=== PATIENT | male | born 1970 | race African-American/Black ===

== ENCOUNTER 2020-01-07 09:55 | Emergency (ER) | payer MEDICAID ==
[~2020-01-07] VITALS: Ht 167.6 cm; Wt 66.0 kg
[2020-01-07 13:23] VITALS: BP 130/80
== END 2020-01-07 13:28 | disposition home or self-care (01) ==
LOC: ER 09:55
DX: J06.9 Acute upper respiratory infection, unspecified (principal); G89.29 Other chronic pain; M54.5 Low back pain
CPT/HCPCS: 99283

== ENCOUNTER 2020-02-10 06:29 | Emergency (ER) | payer MEDICAID ==
[~2020-02-10] VITALS: Ht 172.7 cm; Wt 68.0 kg
[2020-02-10] MEDS ORDERED: SODIUM CHLORIDE 0.9% 1000ML BAG (SEPSIS BOLUS) IV ONE (07:15)
[2020-02-10] MEDS ORDERED: MORPHINE SULFATE 4 MG/ML CPJ (NOT FOR IM USE) IV STA (07:15)
[2020-02-10] MEDS ORDERED: ONDANSETRON HCL 4MG/2ML INJ IV STA (07:15)
[2020-02-10 08:47] LABS: BASOPHILS % 0.5 % (0.0-2.0); EOSINOPHILS % 1.8 % (0.0-5.0); HEMATOCRIT. 42.4 % (42.0-52.0); HEMOGLOBIN. 13.9 g/dL (14.0-18.0); MEAN CORPUSCULAR HEMOGLOBIN 28.6 pg (28.0-32.0); MEAN PLATELET VOLUME 7.1 fl (7.4-10.4); NEUTROPHILS % 47.7 % (40.0-76.0); PLATELET 545 x1000/uL (130-400); RED BLOOD CELL COUNT 4.87 mill/uL (4.7-6.1); RED CELL DISTRIBUTION WIDTH 12.5 % (11.6-14.6)
[2020-02-10 08:49] LABS: INR 0.9; PARTIAL THROMBOPLASTIN TIME 21.7 sec (23.4-31.0); PROTHROMBIN TIME 10.1 sec (9.6-11.0)
[2020-02-10 09:05] LABS: BG BASE EXCESS -2.9 mmol/L (-2.0-2.0); BG CARBOXYHEMOGLOBIN 0.3 % (0.5-1.5); BG DEOXYHEMOGLOBIN 2.5 % (0.0-5.0); BG FRACTION INSPIRED OXYGEN 21; BG HCO3 ACT 23.1 mmol/L (22.0-26.0); BG OXYGEN SATURATION 97.5 % (92.0-98.5); BG OXYHEMOGLOBIN 97.2 % (94.0-97.0); BG PCO2 44.6 mmHg (35.0-45.0); BG PH 7.332 (7.350-7.450); BG PO2 102.8 mmHg (75.0-100.0); BG SAMPLE SITE LEFT RADIAL; BG TOTAL HEMOGLOBIN 13.8 g/dL (12.0-18.0); BG VENT MODE ROOM AIR
[2020-02-10] MEDS ORDERED: MORPHINE SULFATE 4 MG/ML CPJ (NOT FOR IM USE) IV ONE ×3 (09:30→19:30)
[2020-02-10 09:58] LABS: CHLORIDE 107 mEq/L (98-107)
[2020-02-10 10:01] LABS: CLARITY URINE CLEAR (CLEAR); COLOR URINE YELLOW (YELLOW); KETONES URINE TRACE (NEGATIVE); LEUKOCYTE ESTERASE URINE NEGATIVE (NEGATIVE); NITRITE URINE NEGATIVE (NEGATIVE); OCCULT BLOOD URINE NEGATIVE (NEGATIVE); PH URINE 5.5 (4.5-8.0); PROTEIN URINE NEGATIVE (NEGATIVE); SPECIFIC GRAVITY URINE 1.024 (1.005-1.030); UROBILINOGEN URINE 0.2 E.U./dL (0.2-1.0)
[2020-02-10 10:01] LABS: ETHANOL BLOOD < 10 mg/dL
[2020-02-10] MEDS ORDERED: TETANUS, DIPHTHERIA, PERTUSSIS VAC/PF 0.5ML (>7YR OLD) IM ONE (14:30)
[2020-02-10 19:30] VITALS: BP 173/87
== END 2020-02-10 19:43 | disposition short-term general hospital (02) ==
LOC: ER 06:29 → CANBEDREQ 17:19 → ER 19:43
DX: T23.002A Burn of unspecified degree of left hand, unspecified site, initial encounter (principal); T23.001A Burn of unspecified degree of right hand, unspecified site, initial encounter; T31.0 Burns involving less than 10% of body surface; X08.8XXA Exposure to other specified smoke, fire and flames, initial encounter; Y93.89 Activity, other specified; Y92.89 Other specified places as the place of occurrence of the external cause; Y99.8 Other external cause status; F17.290 Nicotine dependence, other tobacco product, uncomplicated
CPT/HCPCS: 36415; 36600; 71045; 80053; 80320; 81003; 82375; 82805; 83605; 83690; 84484; 85025; 85610; 85730; 86850; 86900; 86901; 90471; 90715; 93005; 96374; 96375; 96376; 99291; 99406; J2270; J2405; J7030; 99285; G0480

== ENCOUNTER 2021-12-28 11:30 | Inpatient (IN) | payer MEDICAID ==
[~2021-12-28] VITALS: Ht 167.6 cm; Wt 62.1 kg
[2021-12-28] MEDS ORDERED: KETOROLAC 30MG/ML VIAL IV STA (12:01)
[2021-12-28] MEDS ORDERED: PROPOFOL 10MG/ML 100ML 100 ML IV ONE (12:15)
[2021-12-28] MEDS ORDERED: SUCCINYLCHOLINE CHLORIDE 200MG/10ML IV ONE (12:15)
[2021-12-28] MEDS ORDERED: ETOMIDATE 2MG/ML 10ML VIAL IV ONE (12:15)
[2021-12-28] MEDS ORDERED: SODIUM CHLORIDE 0.9% 1,000 ML IV ONE (12:15)
[2021-12-28] MEDS ORDERED: DEXAMETHASONE 10 MG/ML VIAL IV ONE (12:15)
[2021-12-28] MEDS: AMPICILLIN SOD/SULBACTAM NA 3 G in SODIUM CHLORIDE 0.9% 100 ML IV SCH ×2 (12:30→21:28)
[2021-12-28] MEDS ORDERED: SODIUM CHLORIDE 0.9% 2,000 ML IV ONE (12:30)
[2021-12-28 13:08] LABS: CHLORIDE 101 mEq/L (98-107)
[2021-12-28 13:14] LABS: BASOPHILS % 0.2 % (0.0-2.0); EOSINOPHILS % 0.3 % (0.0-5.0); HEMATOCRIT. 41.5 % (42.0-52.0); HEMOGLOBIN. 13.5 g/dL (14.0-18.0); MEAN CORPUSCULAR HEMOGLOBIN 27.5 pg (28.0-32.0); MEAN CORPUSCULAR VOLUME 84.5 fL (80.0-94.0); MEAN PLATELET VOLUME 6.3 fl (7.4-10.4); MONOCYTES % 8.4 % (2.0-8.0); NEUTROPHILS % 81.1 % (40.0-76.0); PLATELET 634 x1000/uL (130-400); RED BLOOD CELL COUNT 4.91 mill/uL (4.7-6.1); RED CELL DISTRIBUTION WIDTH 13.2 % (11.6-14.6)
[2021-12-28] MEDS ORDERED: MIDAZOLAM HCL 2 MG/2 ML VIAL IV ONE (13:15)
[2021-12-28 13:16] LABS: ETHANOL BLOOD < 10 mg/dL
[2021-12-28] MEDS ORDERED: MIDAZOLAM HCL 100 MG in SODIUM CHLORIDE 0.9% 100 ML IV PRN (14:30)
[2021-12-28] MEDS ORDERED: MIDAZOLAM HCL 100 MG in DEXT 5% WATER 80 ML IV ONE (14:30)
[2021-12-28] MEDS ORDERED: FENTANYL CITRATE/PF 50MCG/ML 2ML VIAL IV ONE (14:30)
[2021-12-28] MEDS ORDERED: PROPOFOL 10MG/ML 100ML 100 ML IV PRN (15:45)
[2021-12-28 15:50] LABS: CLARITY URINE CLEAR (CLEAR); COLOR URINE YELLOW (YELLOW); KETONES URINE NEGATIVE (NEGATIVE); LEUKOCYTE ESTERASE URINE NEGATIVE (NEGATIVE); NITRITE URINE NEGATIVE (NEGATIVE); OCCULT BLOOD URINE NEGATIVE (NEGATIVE); PH URINE 6.5 (4.5-8.0); PROTEIN URINE 1+ (NEGATIVE); SPECIFIC GRAVITY URINE 1.013 (1.005-1.030); UROBILINOGEN URINE 0.2 E.U./dL (0.2-1.0)
[2021-12-28 16:11] LABS: *AMPHETAMINES SCREEN URINE PRESUMTIVE POSITIVE (NEGATIVE)
[2021-12-28 16:12] LABS: *BENZODIAZEPINES SCREEN URINE PRESUMTIVE POSITIVE (NEGATIVE); *COCAINE SCREEN URINE NEGATIVE (NEGATIVE); METHADONE URINE SCREEN NEGATIVE (NEGATIVE); OPIATES URINE SCREEN NEGATIVE (NEGATIVE)
[2021-12-28 16:13] LABS: *BARBITURATES SCREEN URINE NEGATIVE (NEGATIVE); CANNABINOID URINE SCREEN PRESUMTIVE POSITIVE (NEGATIVE); PHENCYCLIDINE URINE SCREEN PRESUMTIVE POSITIVE (NEGATIVE)
[2021-12-28] MEDS ORDERED: PIPERACILLIN/TAZOBACTAM 3.375GM/50ML PREMIX IV SCH (21:15)
[2021-12-28] MEDS ORDERED: VANCOMYCIN 1G PREMIX 200 ML IV SCH (21:15)
[2021-12-28 21:39] LABS: BG BASE EXCESS 0.3 mmol/L (-2.0-2.0); BG CARBOXYHEMOGLOBIN 0.6 % (0.5-1.5); BG DEOXYHEMOGLOBIN 0.4 % (0.0-5.0); BG FRACTION INSPIRED OXYGEN 50; BG HCO3 ACT 23.8 mmol/L (22.0-26.0); BG METHEMOGLOBIN 0.4 % (0.0-1.5); BG OXYGEN SATURATION 99.6 % (92.0-98.5); BG OXYHEMOGLOBIN 98.6 % (94.0-97.0); BG PCO2 35.1 mmHg (35.0-45.0); BG PH 7.449 (7.350-7.450); BG PO2 220.8 mmHg (75.0-100.0); BG TOTAL HEMOGLOBIN 14.9 g/dL (12.0-18.0); BG TOTAL RESPIRATORY RATE 16 b/min; BG VENT MODE VENT - AC
[2021-12-28] MEDS: PIPERACILLIN/TAZ 3.375G PREMIX 50 ML IV SCH (22:08)
[2021-12-28] MEDS: HYDRALAZINE 20MG/ML VIAL IV PRN (22:08)
[2021-12-28] MEDS ORDERED: IOHEXOL-300 100 ML BOTTLE ONE (22:37)
[2021-12-29] VITALS (56 sets, daily range): BP systolic 112–157; BP diastolic 66–91
[2021-12-29] MEDS: PIPERACILLIN/TAZ 3.375G PREMIX 50 ML IV SCH (06:00)
[2021-12-29] MEDS: PROPOFOL 10MG/ML 100ML 100 ML IV PRN ×2 (08:28→12:48)
[2021-12-29] MEDS ORDERED: ONDANSETRON HCL 4MG/2ML INJ IV PRN (09:00)
[2021-12-29 10:41] LABS: HEMATOCRIT. 41.1 % (42.0-52.0); HEMOGLOBIN. 13.3 g/dL (14.0-18.0); MEAN CORPUSCULAR HEMOGLOBIN 27.2 pg (28.0-32.0); MEAN CORPUSCULAR VOLUME 84.2 fL (80.0-94.0); MEAN PLATELET VOLUME 6.3 fl (7.4-10.4); PLATELET 608 x1000/uL (130-400); RED BLOOD CELL COUNT 4.88 mill/uL (4.7-6.1); RED CELL DISTRIBUTION WIDTH 12.9 % (11.6-14.6)
[2021-12-29 10:47] LABS: CHLORIDE 106 mEq/L (98-107)
[2021-12-29 11:22] LABS: PLATELET ESTIMATE INCREASED
[2021-12-29 11:55] LABS: BG BASE EXCESS 1.2 mmol/L (-2.0-2.0); BG CARBOXYHEMOGLOBIN 0.3 % (0.5-1.5); BG DEOXYHEMOGLOBIN 1.4 % (0.0-5.0); BG FRACTION INSPIRED OXYGEN 40; BG HCO3 ACT 25.4 mmol/L (22.0-26.0); BG METHEMOGLOBIN 0.2 % (0.0-1.5); BG OXYGEN SATURATION 98.6 % (92.0-98.5); BG OXYHEMOGLOBIN 98.1 % (94.0-97.0); BG PCO2 38.8 mmHg (35.0-45.0); BG PEEP (cmH2O) 0 cmH2O; BG PH 7.434 (7.350-7.450); BG SAMPLE SITE RIGHT RADIAL; BG VENT MODE VENT - AC/VCV
[2021-12-29] MEDS: FAMOTIDINE 20MG/2ML VIAL IV SCH ×2 (12:50→20:10)
[2021-12-29] MEDS: DEXAMETHASONE 4MG/ML 1ML VIAL IV SCH ×2 (12:50→17:44)
[2021-12-29] MEDS: FENTANYL CITRATE/PF 2,500 MCG in SODIUM CHLORIDE 0.9% 200 ML IV PRN (14:03)
[2021-12-29] MEDS: ENOXAPARIN 40MG/0.4ML SYR SUBCUT SCH (16:00)
[2021-12-29] MEDS: AMPICILLIN SOD/SULBACTAM NA 3 G in SODIUM CHLORIDE 0.9% 100 ML IV SCH (17:41)
[2021-12-29] MEDS: PROPOFOL 10MG/ML 100ML 100 ML IV SCH ×2 (19:04→23:45)
[2021-12-30] VITALS (86 sets, daily range): BP systolic 98–158; BP diastolic 60–93
[2021-12-30] MEDS: DEXAMETHASONE 4MG/ML 1ML VIAL IV SCH ×5 (00:29→23:33)
[2021-12-30] MEDS: AMPICILLIN SOD/SULBACTAM NA 3 G in SODIUM CHLORIDE 0.9% 100 ML IV SCH ×5 (00:29→23:33)
[2021-12-30] MEDS: PROPOFOL 10MG/ML 100ML 100 ML IV SCH ×4 (04:37→18:16)
[2021-12-30 07:39] LABS: HEMATOCRIT. 36.7 % (42.0-52.0); HEMOGLOBIN. 11.9 g/dL (14.0-18.0); MEAN CORPUSCULAR HEMOGLOBIN 27.2 pg (28.0-32.0); MEAN CORPUSCULAR VOLUME 83.8 fL (80.0-94.0); MEAN PLATELET VOLUME 6.6 fl (7.4-10.4); PLATELET 583 x1000/uL (130-400); RED BLOOD CELL COUNT 4.38 mill/uL (4.7-6.1)
[2021-12-30 07:40] LABS: CHLORIDE 104 mEq/L (98-107)
[2021-12-30 08:28] LABS: BG BASE EXCESS 1.8 mmol/L (-2.0-2.0); BG CARBOXYHEMOGLOBIN 0.5 % (0.5-1.5); BG DEOXYHEMOGLOBIN 5.5 % (0.0-5.0); BG FRACTION INSPIRED OXYGEN 100; BG HCO3 ACT 27.7 mmol/L (22.0-26.0); BG METHEMOGLOBIN 0.3 % (0.0-1.5); BG OXYGEN SATURATION 94.5 % (92.0-98.5); BG OXYHEMOGLOBIN 93.7 % (94.0-97.0); BG PCO2 48.5 mmHg (35.0-45.0); BG PH 7.374 (7.350-7.450); BG PO2 71.6 mmHg (75.0-100.0); BG SAMPLE SITE RIGHT RADIAL; BG VENT MODE VENT - AC/VC
[2021-12-30 08:36] LABS: PLATELET ESTIMATE INCREASED
[2021-12-30] MEDS: FAMOTIDINE 20MG/2ML VIAL IV SCH ×2 (09:19→20:08)
[2021-12-30] MEDS: ENOXAPARIN 40MG/0.4ML SYR SUBCUT SCH (16:20)
[2021-12-30] MEDS: FENTANYL CITRATE/PF 2,500 MCG in SODIUM CHLORIDE 0.9% 200 ML IV PRN (21:12)
[2021-12-30] MEDS: PROPOFOL 10MG/ML 100ML 100 ML IV PRN (23:46)
[2021-12-31] VITALS (92 sets, daily range): BP systolic 64–154; BP diastolic 36–106
[2021-12-31 04:07] LABS: HIV SCREEN 4G Non Reactive (Non Reactive)
[2021-12-31] MEDS: PROPOFOL 10MG/ML 100ML 100 ML IV PRN ×4 (04:59→23:25)
[2021-12-31] MEDS: AMPICILLIN SOD/SULBACTAM NA 3 G in SODIUM CHLORIDE 0.9% 100 ML IV SCH ×4 (05:29→23:23)
[2021-12-31] MEDS: DEXAMETHASONE 4MG/ML 1ML VIAL IV SCH ×4 (05:29→23:23)
[2021-12-31 06:13] LABS: HEMATOCRIT. 34.4 % (42.0-52.0); MEAN CORPUSCULAR HEMOGLOBIN 26.8 pg (28.0-32.0); MEAN CORPUSCULAR VOLUME 83.9 fL (80.0-94.0); MEAN PLATELET VOLUME 6.6 fl (7.4-10.4); PLATELET 548 x1000/uL (130-400)
[2021-12-31 06:18] LABS: CHLORIDE 107 mEq/L (98-107)
[2021-12-31 08:43] LABS: BG BASE EXCESS 2.4 mmol/L (-2.0-2.0); BG CARBOXYHEMOGLOBIN 0.3 % (0.5-1.5); BG DEOXYHEMOGLOBIN 0.8 % (0.0-5.0); BG FRACTION INSPIRED OXYGEN 40; BG HCO3 ACT 26.6 mmol/L (22.0-26.0); BG METHEMOGLOBIN 0.3 % (0.0-1.5); BG OXYGEN SATURATION 99.2 % (92.0-98.5); BG OXYHEMOGLOBIN 98.6 % (94.0-97.0); BG PCO2 39.6 mmHg (35.0-45.0); BG PH 7.445 (7.350-7.450); BG PO2 162.5 mmHg (75.0-100.0); BG SAMPLE SITE RIGHT RADIAL; BG TOTAL HEMOGLOBIN 12.2 g/dL (12.0-18.0); BG TOTAL RESPIRATORY RATE 14 b/min; BG VENT MODE VENT - AC
[2021-12-31] MEDS: FAMOTIDINE 20MG/2ML VIAL IV SCH ×2 (09:00→20:45)
[2021-12-31 09:06] LABS: PLATELET ESTIMATE INCREASED
[2021-12-31] MEDS: ENOXAPARIN 40MG/0.4ML SYR SUBCUT SCH (15:11)
[2021-12-31] MEDS ORDERED: GUAIFENESIN-DM 200MG-20MG/10ML UDC PO PRN (20:00)
[2021-12-31] MEDS: FENTANYL CITRATE/PF 2,500 MCG in SODIUM CHLORIDE 0.9% 200 ML IV PRN (23:25)
[2022-01-01] VITALS (85 sets, daily range): BP systolic 111–165; BP diastolic 57–93
[2022-01-01] MEDS: AMPICILLIN SOD/SULBACTAM NA 3 G in SODIUM CHLORIDE 0.9% 100 ML IV SCH ×3 (05:07→17:32)
[2022-01-01] MEDS: DEXAMETHASONE 4MG/ML 1ML VIAL IV SCH ×3 (05:07→17:32)
[2022-01-01] MEDS: PROPOFOL 10MG/ML 100ML 100 ML IV PRN ×5 (05:10→23:14)
[2022-01-01 07:00] LABS: CHLORIDE 105 mEq/L (98-107)
[2022-01-01 07:03] LABS: BASOPHILS % 0.1 % (0.0-2.0); HEMATOCRIT. 34.3 % (42.0-52.0); HEMOGLOBIN. 11.2 g/dL (14.0-18.0); LYMPHOCYTES % 8.8 % (20.0-50.0); MEAN CORPUSCULAR HEMOGLOBIN 27.7 pg (28.0-32.0); MEAN CORPUSCULAR VOLUME 84.6 fL (80.0-94.0); MEAN PLATELET VOLUME 6.8 fl (7.4-10.4); MONOCYTES % 6.4 % (2.0-8.0); NEUTROPHILS % 84.7 % (40.0-76.0); PLATELET 551 x1000/uL (130-400); RED BLOOD CELL COUNT 4.06 mill/uL (4.7-6.1); RED CELL DISTRIBUTION WIDTH 12.9 % (11.6-14.6)
[2022-01-01] MEDS ORDERED: IPRATROPIUM/ALBUTEROL 0.5-3(2.5)MG/3ML NEB HHN PRN (08:45)
[2022-01-01 09:09] LABS: BG BASE EXCESS 1.9 mmol/L (-2.0-2.0); BG CARBOXYHEMOGLOBIN 0.8 % (0.5-1.5); BG DEOXYHEMOGLOBIN 0.7 % (0.0-5.0); BG FRACTION INSPIRED OXYGEN 40; BG METHEMOGLOBIN 0.3 % (0.0-1.5); BG OXYGEN SATURATION 99.3 % (92.0-98.5); BG OXYHEMOGLOBIN 98.2 % (94.0-97.0); BG PCO2 43.7 mmHg (35.0-45.0); BG PH 7.408 (7.350-7.450); BG PO2 169.4 mmHg (75.0-100.0); BG SAMPLE SITE RIGHT RADIAL; BG TOTAL HEMOGLOBIN 12.5 g/dL (12.0-18.0); BG TOTAL RESPIRATORY RATE 14 b/min; BG VENT MODE VENT - AC
[2022-01-01] MEDS: FAMOTIDINE 20MG/2ML VIAL IV SCH ×2 (09:32→21:59)
[2022-01-01] MEDS ORDERED: LIDOCAINE HCL 1% 20ML VIAL (Pyxis) INJ ONE (10:45)
[2022-01-01] MEDS: IPRATROPIUM/ALBUTEROL 0.5-3(2.5)MG/3ML NEB HHN SCH ×3 (12:34→21:29)
[2022-01-01] MEDS: ENOXAPARIN 40MG/0.4ML SYR SUBCUT SCH (16:05)
[2022-01-02] VITALS (81 sets, daily range): BP systolic 106–174; BP diastolic 56–116
[2022-01-02] MEDS: AMPICILLIN SOD/SULBACTAM NA 3 G in SODIUM CHLORIDE 0.9% 100 ML IV SCH ×4 (00:01→17:09)
[2022-01-02] MEDS: DEXAMETHASONE 4MG/ML 1ML VIAL IV SCH ×4 (00:01→17:09)
[2022-01-02] MEDS: IPRATROPIUM/ALBUTEROL 0.5-3(2.5)MG/3ML NEB HHN SCH ×5 (01:56→15:34)
[2022-01-02] MEDS: FENTANYL CITRATE/PF 2,500 MCG in SODIUM CHLORIDE 0.9% 200 ML IV PRN (02:02)
[2022-01-02] MEDS: PROPOFOL 10MG/ML 100ML 100 ML IV PRN ×5 (03:26→23:08)
[2022-01-02 06:11] LABS: HEMATOCRIT. 33.1 % (42.0-52.0); HEMOGLOBIN. 10.7 g/dL (14.0-18.0); MEAN CORPUSCULAR HEMOGLOBIN 27.3 pg (28.0-32.0); MEAN CORPUSCULAR VOLUME 84.7 fL (80.0-94.0); MEAN PLATELET VOLUME 6.7 fl (7.4-10.4); PLATELET 557 x1000/uL (130-400); RED BLOOD CELL COUNT 3.91 mill/uL (4.7-6.1); RED CELL DISTRIBUTION WIDTH 13.1 % (11.6-14.6)
[2022-01-02 06:24] LABS: CHLORIDE 109 mEq/L (98-107)
[2022-01-02] MEDS: FAMOTIDINE 20MG/2ML VIAL IV SCH ×2 (08:01→22:18)
[2022-01-02 09:29] LABS: BG BASE EXCESS 0.1 mmol/L (-2.0-2.0); BG CARBOXYHEMOGLOBIN 0.4 % (0.5-1.5); BG DEOXYHEMOGLOBIN 0.9 % (0.0-5.0); BG FRACTION INSPIRED OXYGEN 40; BG HCO3 ACT 25.8 mmol/L (22.0-26.0); BG METHEMOGLOBIN 0.3 % (0.0-1.5); BG OXYGEN SATURATION 99.1 % (92.0-98.5); BG OXYHEMOGLOBIN 98.4 % (94.0-97.0); BG PCO2 46.8 mmHg (35.0-45.0); BG PO2 151.4 mmHg (75.0-100.0); BG SAMPLE SITE RIGHT RADIAL; BG TOTAL HEMOGLOBIN 11.8 g/dL (12.0-18.0); BG VENT MODE VENT - AC
[2022-01-02 11:56] LABS: PLATELET ESTIMATE NORMAL
[2022-01-02] MEDS: ENOXAPARIN 40MG/0.4ML SYR SUBCUT SCH (17:10)
[2022-01-02] MEDS ORDERED: IOHEXOL-300 100 ML BOTTLE ONE (17:43)
[2022-01-03] VITALS (63 sets, daily range): BP systolic 103–168; BP diastolic 55–94
[2022-01-03] MEDS: AMPICILLIN SOD/SULBACTAM NA 3 G in SODIUM CHLORIDE 0.9% 100 ML IV SCH ×4 (01:06→21:39)
[2022-01-03] MEDS: DEXAMETHASONE 4MG/ML 1ML VIAL IV SCH ×4 (01:07→17:42)
[2022-01-03] MEDS: FENTANYL CITRATE/PF 2,500 MCG in SODIUM CHLORIDE 0.9% 200 ML IV PRN ×2 (02:19→20:31)
[2022-01-03] MEDS: PROPOFOL 10MG/ML 100ML 100 ML IV PRN ×5 (02:29→21:30)
[2022-01-03 05:59] LABS: CHLORIDE 109 mEq/L (98-107)
[2022-01-03 06:07] LABS: HEMATOCRIT. 31.5 % (42.0-52.0); HEMOGLOBIN. 10.6 g/dL (14.0-18.0); MEAN CORPUSCULAR HEMOGLOBIN 28.2 pg (28.0-32.0); MEAN CORPUSCULAR VOLUME 84.2 fL (80.0-94.0); MEAN PLATELET VOLUME 6.7 fl (7.4-10.4); PLATELET 554 x1000/uL (130-400); RED BLOOD CELL COUNT 3.74 mill/uL (4.7-6.1)
[2022-01-03] MEDS: IPRATROPIUM/ALBUTEROL 0.5-3(2.5)MG/3ML NEB HHN SCH ×4 (08:28→20:58)
[2022-01-03] MEDS: FAMOTIDINE 20MG/2ML VIAL IV SCH ×2 (09:14→21:00)
[2022-01-03 09:44] LABS: BG BASE EXCESS 1.9 mmol/L (-2.0-2.0); BG CARBOXYHEMOGLOBIN 0.3 % (0.5-1.5); BG DEOXYHEMOGLOBIN 1.1 % (0.0-5.0); BG FRACTION INSPIRED OXYGEN 30; BG HCO3 ACT 25.8 mmol/L (22.0-26.0); BG METHEMOGLOBIN 0.2 % (0.0-1.5); BG OXYGEN SATURATION 98.9 % (92.0-98.5); BG OXYHEMOGLOBIN 98.4 % (94.0-97.0); BG PCO2 37.9 mmHg (35.0-45.0); BG PH 7.451 (7.350-7.450); BG PO2 140.5 mmHg (75.0-100.0); BG SAMPLE SITE RIGHT RADIAL; BG TOTAL HEMOGLOBIN 11.6 g/dL (12.0-18.0); BG VENT MODE VENT - AC
[2022-01-03 10:22] LABS: PLATELET ESTIMATE INCREASED
[2022-01-03] MEDS ORDERED: PROPOFOL 10MG/ML 100ML 100 ML IV PRN (16:30)
[2022-01-03] MEDS: ENOXAPARIN 40MG/0.4ML SYR SUBCUT SCH (17:42)
[2022-01-03] MEDS ORDERED: AMPICILLIN SOD/SULBACTAM NA 3 G in SODIUM CHLORIDE 0.9% 100 ML IV SCH (23:00)
[2022-01-04] VITALS (69 sets, daily range): BP systolic 106–196; BP diastolic 63–153
[2022-01-04] MEDS: PROPOFOL 10MG/ML 100ML 100 ML IV PRN ×2 (03:00→07:25)
[2022-01-04] MEDS: IPRATROPIUM/ALBUTEROL 0.5-3(2.5)MG/3ML NEB HHN SCH ×5 (04:23→20:32)
[2022-01-04] MEDS: DEXAMETHASONE 4MG/ML 1ML VIAL IV SCH ×5 (05:43→23:38)
[2022-01-04] MEDS: AMPICILLIN SOD/SULBACTAM NA 3 G in SODIUM CHLORIDE 0.9% 100 ML IV SCH ×4 (05:43→23:38)
[2022-01-04 06:33] LABS: HEMATOCRIT. 35.4 % (42.0-52.0); HEMOGLOBIN. 11.2 g/dL (14.0-18.0); MEAN PLATELET VOLUME 6.9 fl (7.4-10.4); PLATELET 542 x1000/uL (130-400); RED BLOOD CELL COUNT 4.16 mill/uL (4.7-6.1); RED CELL DISTRIBUTION WIDTH 13.1 % (11.6-14.6)
[2022-01-04 06:47] LABS: CHLORIDE 107 mEq/L (98-107)
[2022-01-04] MEDS: FAMOTIDINE 20MG/2ML VIAL IV SCH ×2 (08:38→21:35)
[2022-01-04 09:20] LABS: BG BASE EXCESS -0.5 mmol/L (-2.0-2.0); BG CARBOXYHEMOGLOBIN 0.7 % (0.5-1.5); BG DEOXYHEMOGLOBIN 1.2 % (0.0-5.0); BG FRACTION INSPIRED OXYGEN 30; BG HCO3 ACT 23.6 mmol/L (22.0-26.0); BG METHEMOGLOBIN 0.2 % (0.0-1.5); BG OXYGEN SATURATION 98.8 % (92.0-98.5); BG OXYHEMOGLOBIN 97.9 % (94.0-97.0); BG PH 7.423 (7.350-7.450); BG PO2 131.4 mmHg (75.0-100.0); BG SAMPLE SITE LEFT RADIAL; BG TOTAL HEMOGLOBIN 12.2 g/dL (12.0-18.0); BG VENT MODE VENT - AC
[2022-01-04 13:33] LABS: BG BASE EXCESS -2.1 mmol/L (-2.0-2.0); BG CARBOXYHEMOGLOBIN 0.5 % (0.5-1.5); BG DEOXYHEMOGLOBIN 1.9 % (0.0-5.0); BG FRACTION INSPIRED OXYGEN 30; BG HCO3 ACT 22.8 mmol/L (22.0-26.0); BG METHEMOGLOBIN 0.4 % (0.0-1.5); BG OXYGEN SATURATION 98.1 % (92.0-98.5); BG OXYHEMOGLOBIN 97.2 % (94.0-97.0); BG PCO2 39.7 mmHg (35.0-45.0); BG PH 7.377 (7.350-7.450); BG PO2 109.7 mmHg (75.0-100.0); BG SAMPLE SITE RIGHT RADIAL; BG TOTAL HEMOGLOBIN 13.7 g/dL (12.0-18.0); BG VENT MODE VENT - CPAP
[2022-01-04] MEDS ORDERED: RACEPINEPHRINE 2.25% 0.5ML NEB VIAL HHN PRN (14:15)
[2022-01-04 14:24] LABS: PLATELET ESTIMATE INCREASED
[2022-01-04] MEDS: ENOXAPARIN 40MG/0.4ML SYR SUBCUT SCH (15:50)
[2022-01-04] MEDS: HYDRALAZINE 20MG/ML VIAL IV PRN (17:17)
[2022-01-05] VITALS (50 sets, daily range): BP systolic 90–169; BP diastolic 43–111
[2022-01-05] MEDS: IPRATROPIUM/ALBUTEROL 0.5-3(2.5)MG/3ML NEB HHN SCH ×7 (00:09→20:35)
[2022-01-05] MEDS: DEXAMETHASONE 4MG/ML 1ML VIAL IV SCH ×2 (06:00→17:59)
[2022-01-05] MEDS: AMPICILLIN SOD/SULBACTAM NA 3 G in SODIUM CHLORIDE 0.9% 100 ML IV SCH ×4 (06:00→23:43)
[2022-01-05 06:07] LABS: BASOPHILS % 0.4 % (0.0-2.0); HEMATOCRIT. 37.7 % (42.0-52.0); HEMOGLOBIN. 12.1 g/dL (14.0-18.0); MEAN CORPUSCULAR VOLUME 84.1 fL (80.0-94.0); MEAN PLATELET VOLUME 6.8 fl (7.4-10.4); MONOCYTES % 8.2 % (2.0-8.0); NEUTROPHILS % 83.4 % (40.0-76.0); PLATELET 606 x1000/uL (130-400); RED BLOOD CELL COUNT 4.49 mill/uL (4.7-6.1); RED CELL DISTRIBUTION WIDTH 13.1 % (11.6-14.6)
[2022-01-05 06:17] LABS: CHLORIDE 103 mEq/L (98-107)
[2022-01-05] MEDS: FAMOTIDINE 20MG/2ML VIAL IV SCH ×2 (09:05→21:26)
[2022-01-05] MEDS: ENOXAPARIN 40MG/0.4ML SYR SUBCUT SCH (15:23)
[2022-01-05] MEDS ORDERED: POLYVINYL ALCOHOL OPHTH DROPS 15ML BOTHEYE PRN (18:30)
[2022-01-06] VITALS (19 sets, daily range): BP systolic 123–178; BP diastolic 65–126
[2022-01-06] MEDS: IPRATROPIUM/ALBUTEROL 0.5-3(2.5)MG/3ML NEB HHN SCH ×5 (00:26→20:42)
[2022-01-06] MEDS: AMPICILLIN SOD/SULBACTAM NA 3 G in SODIUM CHLORIDE 0.9% 100 ML IV SCH ×4 (05:27→23:25)
[2022-01-06 06:33] LABS: BASOPHILS % 0.3 % (0.0-2.0); EOSINOPHILS % 0.1 % (0.0-5.0); HEMATOCRIT. 39.5 % (42.0-52.0); LYMPHOCYTES % 18.8 % (20.0-50.0); MEAN CORPUSCULAR HEMOGLOBIN 27.5 pg (28.0-32.0); MEAN CORPUSCULAR VOLUME 83.6 fL (80.0-94.0); MEAN PLATELET VOLUME 6.8 fl (7.4-10.4); MONOCYTES % 11.9 % (2.0-8.0); NEUTROPHILS % 68.9 % (40.0-76.0); PLATELET 626 x1000/uL (130-400); RED BLOOD CELL COUNT 4.72 mill/uL (4.7-6.1); RED CELL DISTRIBUTION WIDTH 13.1 % (11.6-14.6)
[2022-01-06 06:37] LABS: CHLORIDE 103 mEq/L (98-107)
[2022-01-06] MEDS: FAMOTIDINE 20MG/2ML VIAL IV SCH ×2 (08:05→21:26)
[2022-01-06] MEDS: DEXAMETHASONE 4MG/ML 1ML VIAL IV SCH ×2 (08:05→17:54)
[2022-01-06] MEDS: ACETAMINOPHEN 325MG TABLET PO PRN (12:53)
[2022-01-06] MEDS: ENOXAPARIN 40MG/0.4ML SYR SUBCUT SCH (17:54)
[2022-01-06] MEDS ORDERED: FENTANYL CITRATE/PF 2,500 MCG in DEXT 5% WATER 200 ML IV PRN (19:45)
[2022-01-07] VITALS: BP 128/80
[2022-01-07 04:00] VITALS: BP 146/80
[2022-01-07] MEDS: IPRATROPIUM/ALBUTEROL 0.5-3(2.5)MG/3ML NEB HHN SCH ×6 (04:28→21:14)
[2022-01-07] MEDS: AMPICILLIN SOD/SULBACTAM NA 3 G in SODIUM CHLORIDE 0.9% 100 ML IV SCH ×4 (05:03→23:32)
[2022-01-07 08:30] VITALS: BP 117/67
[2022-01-07] MEDS: FAMOTIDINE 20MG/2ML VIAL IV SCH ×2 (09:23→21:16)
[2022-01-07] MEDS: DEXAMETHASONE 4MG/ML 1ML VIAL IV SCH ×2 (09:23→16:43)
[2022-01-07 12:00] VITALS: BP 128/79
[2022-01-07 16:00] VITALS: BP 131/81
[2022-01-07] MEDS: ENOXAPARIN 40MG/0.4ML SYR SUBCUT SCH (16:44)
[2022-01-07 20:00] VITALS: BP 133/79
[2022-01-08] VITALS (7 sets, daily range): BP systolic 121–151; BP diastolic 55–77
[2022-01-08] MEDS: IPRATROPIUM/ALBUTEROL 0.5-3(2.5)MG/3ML NEB HHN SCH ×6 (00:04→20:43)
[2022-01-08] MEDS: AMPICILLIN SOD/SULBACTAM NA 3 G in SODIUM CHLORIDE 0.9% 100 ML IV SCH ×3 (05:07→17:46)
[2022-01-08] MEDS: FAMOTIDINE 20MG/2ML VIAL IV SCH ×2 (09:03→20:27)
[2022-01-08] MEDS: DEXAMETHASONE 4MG/ML 1ML VIAL IV SCH ×2 (09:03→17:49)
[2022-01-08] MEDS: ENOXAPARIN 40MG/0.4ML SYR SUBCUT SCH (17:46)
[2022-01-09] VITALS (7 sets, daily range): BP systolic 119–132; BP diastolic 63–76
[2022-01-09] MEDS: IPRATROPIUM/ALBUTEROL 0.5-3(2.5)MG/3ML NEB HHN SCH ×6 (00:33→21:30)
[2022-01-09] MEDS: DEXAMETHASONE 4MG/ML 1ML VIAL IV SCH ×2 (08:33→17:00)
[2022-01-09] MEDS: FAMOTIDINE 20MG/2ML VIAL IV SCH ×2 (08:33→21:00)
[2022-01-09] MEDS ORDERED: ARIP10TA56 PO (15:02)
[2022-01-09] MEDS: ENOXAPARIN 40MG/0.4ML SYR SUBCUT SCH (18:01)
[2022-01-10] VITALS (7 sets, daily range): BP systolic 106–126; BP diastolic 56–74
[2022-01-10] MEDS: IPRATROPIUM/ALBUTEROL 0.5-3(2.5)MG/3ML NEB HHN SCH ×5 (00:49→20:26)
[2022-01-10] MEDS: FAMOTIDINE 20MG/2ML VIAL IV SCH ×2 (10:20→21:00)
[2022-01-10] MEDS: DEXAMETHASONE 4MG/ML 1ML VIAL IV SCH (10:21)
[2022-01-10 16:17] LABS: CHLORIDE 103 mEq/L (98-107)
[2022-01-10 16:18] LABS: BASOPHILS % 0.1 % (0.0-2.0); EOSINOPHILS % 0.1 % (0.0-5.0); HEMATOCRIT. 39.6 % (42.0-52.0); HEMOGLOBIN. 13.1 g/dL (14.0-18.0); LYMPHOCYTES % 8.6 % (20.0-50.0); MEAN CORPUSCULAR HEMOGLOBIN 28.2 pg (28.0-32.0); MEAN CORPUSCULAR VOLUME 85.5 fL (80.0-94.0); MEAN PLATELET VOLUME 7.4 fl (7.4-10.4); MONOCYTES % 2.8 % (2.0-8.0); NEUTROPHILS % 88.4 % (40.0-76.0); PLATELET 465 x1000/uL (130-400); RED BLOOD CELL COUNT 4.64 mill/uL (4.7-6.1); RED CELL DISTRIBUTION WIDTH 13.9 % (11.6-14.6)
[2022-01-10] MEDS: PAROXETINE HCL 10MG TABLET PO SCH (17:15)
[2022-01-10] MEDS: ENOXAPARIN 40MG/0.4ML SYR SUBCUT SCH (17:16)
[2022-01-10] MEDS: ARIPIPRAZOLE 5MG TABLET PO SCH (21:02)
[2022-01-11] VITALS: BP 100/67
[2022-01-11] MEDS: IPRATROPIUM/ALBUTEROL 0.5-3(2.5)MG/3ML NEB HHN SCH ×6 (00:19→20:54)
[2022-01-11 04:00] VITALS: BP 109/64
[2022-01-11 08:28] VITALS: BP 113/53
[2022-01-11] MEDS: PAROXETINE HCL 10MG TABLET PO SCH (09:09)
[2022-01-11] MEDS: ARIPIPRAZOLE 5MG TABLET PO SCH ×2 (09:09→21:11)
[2022-01-11] MEDS: FAMOTIDINE 20MG/2ML VIAL IV SCH (09:09)
[2022-01-11 12:15] VITALS: BP_SYST 111; BP_SYST 112; BP_DIAS 55; BP_DIAS 65
[2022-01-11 16:07] VITALS: BP 144/68
[2022-01-11] MEDS: ENOXAPARIN 40MG/0.4ML SYR SUBCUT SCH (17:40)
[2022-01-11 20:00] VITALS: BP 119/69
[2022-01-11] MEDS: ACETAMINOPHEN 325MG TABLET PO PRN (21:11)
[2022-01-11] MEDS: FAMOTIDINE 20MG TABLET PO SCH (21:11)
[2022-01-12] VITALS: BP 111/66
[2022-01-12] MEDS: IPRATROPIUM/ALBUTEROL 0.5-3(2.5)MG/3ML NEB HHN SCH ×5 (00:24→15:19)
[2022-01-12 04:00] VITALS: BP 117/61
[2022-01-12 07:30] LABS: CHLORIDE 100 mEq/L (98-107)
[2022-01-12 07:34] LABS: BASOPHILS % 0.5 % (0.0-2.0); EOSINOPHILS % 1.4 % (0.0-5.0); HEMATOCRIT. 35.5 % (42.0-52.0); HEMOGLOBIN. 11.7 g/dL (14.0-18.0); LYMPHOCYTES % 31.1 % (20.0-50.0); MEAN CORPUSCULAR HEMOGLOBIN 27.9 pg (28.0-32.0); MEAN CORPUSCULAR VOLUME 84.3 fL (80.0-94.0); MEAN PLATELET VOLUME 7.3 fl (7.4-10.4); MONOCYTES % 5.4 % (2.0-8.0); NEUTROPHILS % 61.6 % (40.0-76.0); PLATELET 440 x1000/uL (130-400); RED BLOOD CELL COUNT 4.21 mill/uL (4.7-6.1); RED CELL DISTRIBUTION WIDTH 13.8 % (11.6-14.6)
[2022-01-12 08:00] VITALS: BP 106/55
[2022-01-12] MEDS: FAMOTIDINE 20MG TABLET PO SCH (08:44)
[2022-01-12] MEDS: PAROXETINE HCL 10MG TABLET PO SCH (08:44)
[2022-01-12] MEDS: ARIPIPRAZOLE 5MG TABLET PO SCH (08:44)
[2022-01-12 12:00] VITALS: BP 110/60
[2022-01-12 14:28] VITALS: BP 110/60
== END 2022-01-12 18:01 | disposition home or self-care (01) | DRG 720 ==
LOC: ER 11:30 → MICUSO 21:11 → CVICU 12-29 06:21 → 6WST 01-06 09:01
PROVIDERS: ADMIT Internal Medicine; ATTEND Internal Medicine
PROC: 5A1955Z Respiratory Ventilation, Greater than 96 Consecutive Hours (ICD-10-PCS; principal; 2021-12-28)
PROC: 0BH17EZ Insertion of Endotracheal Airway into Trachea, Via Natural or Artificial Opening (ICD-10-PCS; 2021-12-28)
PROC: 02HV33Z Insertion of Infusion Device into Superior Vena Cava, Percutaneous Approach (ICD-10-PCS; 2022-01-01)
PROC: B548ZZA Ultrasonography of Superior Vena Cava, Guidance (ICD-10-PCS; 2022-01-01)
DX: A41.3 Sepsis due to Hemophilus influenzae (principal); J96.01 Acute respiratory failure with hypoxia; J38.4 Edema of larynx; E87.1 Hypo-osmolality and hyponatremia; F25.9 Schizoaffective disorder, unspecified; F33.1 Major depressive disorder, recurrent, moderate; K12.2 Cellulitis and abscess of mouth; D75.839 Thrombocytosis, unspecified; D64.9 Anemia, unspecified; Z60.2 Problems related to living alone; F10.10 Alcohol abuse, uncomplicated; F17.200 Nicotine dependence, unspecified, uncomplicated; F43.10 Post-traumatic stress disorder, unspecified; Z59.00 Homelessness unspecified; Z79.899 Other long term (current) drug therapy; F19.10 Other psychoactive substance abuse, uncomplicated
CPT/HCPCS: 36415; 36600; 70491; 71045; 76937; 80048; 80053; 80305; 80320; 81003; 82375; 82805; 82962; 83605; 84145; 84478; 85025; 86140; 86850; 86900; 87070; 87077; 87389; 87426; 87804; 92610; 93005; 94002; 94003; 94640; 97162; 97166; 99291; C1725; J0295; J0330; J0360; J1100; J1650; J2250; J2543; J2704; J3010; J3370; J3490; J7030; J7050; Q9967; G0480